=== PATIENT | female | born 1995 | race Caucasian/White ===

== ENCOUNTER 2020-09-08 11:34 | Emergency (ER) | payer BC ==
[~2020-09-08] VITALS: Ht 172.7 cm; Wt 79.4 kg
[2020-09-08 12:15] LABS: ABSOLUTE NEUTROPHILS 3.4 thou/uL (1.4-8.2); BASOPHILS 0.6 % (0.0-2.0); EOSINOPHILS 0.6 % (0.0-3.0); HEMATOCRIT 39.1 % (37.0-47.0); HEMOGLOBIN 13.9 gm/dL (12.0-15.0); LYMPHOCYTES 25.2 % (24.0-44.0); MCH 30.5 pg (26.0-34.0); MCHC 35.5 g/dL (28.0-37.0); MCV 85.8 fL (80.0-100.0); MONOCYTES 9.1 % (1.0-8.0); PLATELET COUNT 273 thou/uL (150-400); POLYS 64.5 % (36.0-66.0); RBC 4.55 mil/uL (4.20-5.00); RDW 12.7 % (10.5-14.5); WBC 5.3 thou/uL (4.0-11.0)
[2020-09-08 12:25] LABS: CALCIUM 8.9 mg/dL (8.5-10.1); CREATININE 0.8 mg/dL (0.6-1.0); POTASSIUM 3.2 mmol/L (3.5-5.1)
[2020-09-08 13:24] LABS: URINE BILIRUBIN NEGATIVE (Negative); URINE BLOOD NEGATIVE (Negative); URINE CLARITY CLEAR; URINE COLOR YELLOW; URINE GLUCOSE-RANDOM* NEGATIVE (Negative); URINE KETONES NEGATIVE (Negative); URINE LEUKOCYTES-REFLEX NEGATIVE (Negative); URINE NITRITE-REFLEX NEGATIVE (Negative); URINE PROTEIN (DIPSTICK) NEGATIVE (Negative); URINE SPECIFIC GRAVITY <= 1.005 (1.005-1.035); URINE UROBILINOGEN 0.2 E.U./dl (0.2-1.0)
[2020-09-08 15:16] VITALS: BP 138/80
--- NOTE | 2020-09-09 08:23 | EKG ---
[address] [place] [address] ELECTROCARDIOGRAM REPORT Name: SATISH PURI Room #: [facility]P [facility]#: [id number] Admission: 09/08/20 Attend Phys: Discharge: 09/08/20 Date of : [birth year] Report #: [id number] [facility] ED Test Date: 2020-09-08 Test Time: 11:43:08 Pat Name: SATISH PURI Department: Room: Gender: F [employer]sembler: : 1995 Requested By: Billy Cespedes Order Number: [id number] MD: Joshua Fay Measurements Intervals [place] Rate: 124 P: 67 LA: 158 QRS: 60 QRSD: 86 T: -32 QT: 294 QTc: 423 Interpretive Statements Sinus tachycardia Anterior infarct, old Borderline T abnormalities, inferior leads No previous ECG available for comparison Electronically Signed On 09-09-2020 7:02:05 CDT by Joshua Fay [email or web address] <ELECTRONICALLY SIGNED> By: Joshua Fay MD, [facility] 09/09/20 0702 [id number] 1143 Joshua Fay MD, FACC /EPI
== END 2020-09-08 15:16 | disposition home or self-care (01) ==
LOC: ER 11:34
PROVIDERS: Nurse Practitioner
DX: R00.0 Tachycardia, unspecified (principal); R42 Dizziness and giddiness; R06.02 Shortness of breath

== ENCOUNTER → 2020-11-16 | Outpatient (CLI) | payer BC | LOC: SJCVCIMAG 07:24 | PROVIDERS: ATTEND Internal Medicine Cardiovascular Disease | DX: R00.0 Tachycardia, unspecified (principal); R00.2 Palpitations; R42 Dizziness and giddiness; Z86.16 Personal history of COVID-19; Z79.899 Other long term (current) drug therapy; Z72.89 Other problems related to lifestyle ==